=== PATIENT | male | born 1985 ===

== ENCOUNTER 2018-06-03 10:07 | Emergency (ER) | payer OTHER ==
[2018-06-03 10:18] VITALS: BMI 30.1
[2018-06-03 10:19] VITALS: BP 112/64; PULSE 63; RESP 17; TEMP 98.6; O2SAT 98
--- NOTE | 2018-06-03 12:07 | RAD ---
Date of service: 06/03/2018 HISTORY: chest pain COMPARISON: Chest radiograph dated 12/19/2014. TECHNIQUE: Chest PA and lateral views FINDINGS: LUNGS: No active pulmonary disease. PLEURA: No significant pleural effusion identified. No pneumothorax apparent. CARDIOVASCULAR: No aortic atherosclerotic calcification present. Normal cardiac size. No pulmonary vascular congestion. OSSEOUS STRUCTURES: No significant abnormalities. VISUALIZED UPPER ABDOMEN: Normal. OTHER FINDINGS: None. IMPRESSION: No active disease.
--- NOTE | 2018-06-03 12:28 | ED PDOC ---
HPI: Chest Pain Time Seen by Provider: 06/03/18 10:42 Chief Complaint (Nursing): Chest Pain Chief Complaint (Provider): Chest Pain History Per: Patient History/Exam Limitations: no limitations Onset/Duration Of Symptoms: Intermittent Episodes Current Symptoms Are (Timing): Better Additional Complaint(s): 33 year old male arrives to the emergency department for an evaluation of multiple complaints. Patient reports experiencing intermittent chest pain for 1 year, alternating right and left, and lasts a few minutes to hours then resolves spontaneously. Additionally, he reports some mild, intermittent, left testicular pain. At present, patient states he does not feel symptomatic. He denies penile discharge, pain, or swelling, however, expresses concern for STDs and would like to be tested. PCP: none provided Past Medical History Reviewed: Historical Data, Nursing Documentation, Vital Signs Vital Signs: Last Vital Signs Temp 98.6 F 06/03/18 10:18 Pulse 63 06/03/18 10:18 Resp 17 06/03/18 10:18 BP 112/64 06/03/18 10:18 Pulse Ox 98 06/03/18 10:18 - Medical History PMH: Asthma - Family History Family History: States: Unknown Family Hx - Home Medications Home Medications: Ambulatory Orders Medication Instructions Recorded Prednisone 50 mg PO DAILY #5 tab 12/19/14 - Allergies Allergies/Adverse Reactions: Allergies Allergy/AdvReac Type Severity Reaction Status Date / Time No Known Allergies Allergy Verified 06/03/18 10:24 Review of Systems ROS Statement: Except As Marked, All Systems Reviewed And Found Negative Cardiovascular: Positive for: Chest Pain (bilateral) Genitourinary Male: Positive for: Scrotal Pain (left teste). Negative for: Penile Discharge, Rash (or swelling), Penile Pain Physical Exam - Reviewed Nursing Documentation Reviewed: Yes Vital Signs Reviewed: Yes - Physical Exam Cardiovascular/Chest: Positive for: Regular Rate, Rhythm, Chest Non Tender. Negative for: Murmur Respiratory: Positive for: Normal Breath Sounds. Negative for: Wheezing, Respiratory Distress Male Genital Exam: Positive for: other (left, mobile, cystic-like structure on left aspect of testes). Negative for: erythema, scrotum tenderness (R), scrotum tenderness (L), testicular tenderness (R), testicular tenderness (L), urethral discharge Extremity: Positive for: Normal ROM (upper/lower). Negative for: Pedal Edema, Calf Tenderness Neurological/Psych: Positive for: Awake, Alert, Normal Tone. Negative for: Motor/Sensory Deficits - ECG O2 Sat by Pulse Oximetry: 98 (RA) Pulse Ox Interpretation: Normal Medical Decision Making Medical Decision Making: Time: 1140 Initial Plan: * CXR * Chlamydia/GC * UA * US testes duplex EKG: NSR at 64 bpm, no acute ischemic changes, QTc 398ms; as read by me CXR: napd; as read by me UA: wnl. US testes: small right hydrocele, otherwise normal (-) torsion Pt. well appearing, abd. soft/nt, no cp, lungs clear. Scribe Attestation: Documented by Brooklynn Albert, acting as a scribe for Cecilia Mccann PA-C. Provider Scribe Attestation: All medical record entries made by the Scribe were at my direction and personally dictated by me. I have reviewed the chart and agree that the record accurately reflects my personal performance of the history, physical exam, medical decision making, and the department course for this patient. I have also personally directed, reviewed, and agree with the discharge instructions and disposition. Disposition - Clinical Impression Clinical Impression: Chest pain, Testicular pain - Patient ED Disposition Is Patient to be Admitted: No Counseled Patient/Family Regarding: Studies Performed, Diagnosis, Need For Followup - Disposition Referrals: [facility] [Outside] Disposition: Routine/Home Disposition Time: 14:40 Condition: STABLE Instructions: Chest Pain (DC), How to Perform a Testicular Self-Exam Forms: [employer] (Hungarian)
[2018-06-03 12:49] LABS: URINE BILIRUBIN NEGATIVE (NEGATIVE); URINE BLOOD NEGATIVE (NEGATIVE); URINE CLARITY SLIGHTY-CLOUDY (Clear); URINE COLOR YELLOW (YELLOW); URINE GLUCOSE (UA) NEG (NEGATIVE); URINE LEUKOCYTE ESTERASE NEG Leu/uL (Negative); URINE PROTEIN NEGATIVE (NEGATIVE); URINE UROBILINOGEN 0.2-1.0 mg/dL (0.2-1.0)
--- NOTE | 2018-06-03 13:43 | US ---
Date of service: 06/03/2018 HISTORY: left testiscular pain TECHNIQUE: Realtime sonography through the scrotum with color and doppler flow. COMPARISON: None Available. FINDINGS: RIGHT TESTICLE: Measures 3.8 x 2.3 x 2.6 cm. Normal echotexture and flow. RIGHT EPIDIDYMIS: Epididymal head measures 0.8 x 0.7 x 1.0 cm. Grossly unremarkable appearance with normal flow. LEFT TESTICLE: Measures 4.4 x 2.0 x 2.9 cm. Normal echotexture and flow. LEFT EPIDIDYMIS: Epididymal head measures 1.0 x 0.6 x 1.0 cm. Grossly unremarkable appearance with normal flow. HYDROCELE: Small right hydrocele. VARICOCELE: None. OTHER FINDINGS: None. IMPRESSION: No evidence of testicular torsion. Small right hydrocele.
== END 2018-06-03 15:06 | disposition home or self-care (01) ==
LOC: H.ER 10:07
DX: R07.9 Chest pain, unspecified (principal); N50.812 Left testicular pain; J45.909 Unspecified asthma, uncomplicated

== ENCOUNTER 2018-07-03 20:40 | Emergency (ER) | payer SELFPAY ==
[2018-07-03 20:40] VITALS: BMI 30.1
[2018-07-03 21:52] LABS: BASO # 0.1 K/uL (0.0-0.2); BASO % 0.6 % (0.0-2.0); EOS # 0.1 K/uL (0.0-0.7); EOS % 0.7 % (0.0-4.0); HEMOGLOBIN 17.6 g/dL (12.0-18.0); LYMPH # 1.5 K/uL (1.0-4.3); LYMPH % 14.8 % (20.0-40.0); MEAN CELL VOLUME 87.8 fl (80.0-94.0); MEAN CORPUSCULAR HEMOGLOBIN 29.4 pg (27.0-31.0); MEAN CORPUSCULAR HGB CONC 33.5 g/dL (33.0-37.0); MEAN PLATELET VOLUME 8.7 fl (7.2-11.7); MONO # 0.7 K/uL (0.0-0.8); MONO % 7.5 % (0.0-10.0); NEUT # 7.5 K/uL (1.8-7.0); NEUT % 76.4 % (50.0-75.0); NRBC % 0.1 % (0.0-0.0); RBC 5.98 Mil/uL (4.40-5.90); RED CELL DISTRIBUTION WIDTH 13.3 % (11.5-14.5); WHITE BLOOD COUNT 9.8 K/uL (4.8-10.8)
[2018-07-03 22:05] LABS: ALB/GLOB RATIO 1.5 (1.0-2.1); ALBUMIN 4.9 g/dL (3.5-5.0); ALT/SGPT 28 U/L (21-72); AST/SGOT 30 U/L (17-59); BLOOD UREA NITROGEN 17 mg/dl (9-20); GFR NON-AFRICAN AMERICAN > 60
[2018-07-03] MEDS ORDERED: Potassium & Sodium Phosphate PO STA (22:13)
--- NOTE | 2018-07-03 22:17 | ED PDOC ---
HPI: SOB/CHF/COPD Time Seen by Provider: 07/03/18 20:59 Chief Complaint (Nursing): Shortness Of Breath Chief Complaint (Provider): chest pain and shortness of breath Onset/Duration Of Symptoms: Sudden Onset (7pm) Current Symptoms Are (Timing): Still Present Quality: Pressure, "Pain" Associated Symptoms: Chills, Chest Pain, Heart Racing, Leg/Calf Pain, Light- headedness, Anxiety. denies: Fever, Sweating, Bloody Cough, Productive Cough, Ankle/Leg Swelling Additional Complaint(s): Started while taking a shower Past Medical History Reviewed: Historical Data, Nursing Documentation, Vital Signs Vital Signs: Last Vital Signs Temp 97.5 F L 07/03/18 20:50 Pulse 108 H 07/03/18 20:50 Resp 17 07/03/18 21:34 BP 102/69 07/03/18 20:50 Pulse Ox 99 07/03/18 21:34 Primary Care Provider: FAMILY PROVIDER,NO - Medical History PMH: Asthma - Surgical History Surgical History: No Surg Hx - Family History Family History: States: No Known Family Hx - Social History Current smoker - smoking cessation education provided: Yes Alcohol: Social Drugs: Cannabis - Home Medications Home Medications: Ambulatory Orders Medication Instructions Recorded Prednisone 50 mg PO DAILY #5 tab 12/19/14 - Allergies Allergies/Adverse Reactions: Allergies Allergy/AdvReac Type Severity Reaction Status Date / Time No Known Allergies Allergy Verified 07/03/18 20:50 Review of Systems ROS Statement: Except As Marked, All Systems Reviewed And Found Negative (and as per HPI) Constitutional: Positive for: Chills Cardiovascular: Positive for: Chest Pain, Light Headedness Respiratory: Positive for: Cough, Shortness of Breath, Pleuritic Pain. Negative for: Hemoptysis, Wheezing Musculoskeletal: Positive for: Leg Pain Physical Exam - Reviewed Nursing Documentation Reviewed: Yes Vital Signs Reviewed: Yes - Physical Exam Appears: Positive for: No Acute Distress Head Exam: Positive for: ATRAUMATIC, NORMOCEPHALIC Skin: Positive for: Warm, Dry Eye Exam: Positive for: EOMI, PERRL ENT: Negative for: Pharyngeal Erythema, Tonsillar Exudate Neck: Positive for: Painless ROM, Supple Cardiovascular/Chest: Positive for: Regular Rate, Rhythm. Negative for: Murmur Respiratory: Positive for: Normal Breath Sounds. Negative for: Respiratory Distress Gastrointestinal/Abdominal: Positive for: Soft. Negative for: Tenderness Back: Positive for: Normal Inspection. Negative for: Decreased ROM Extremity: Positive for: Normal ROM. Negative for: Deformity Lymphatic: Negative for: Adenopathy Neurological/Psych: Positive for: Awake, Alert. Negative for: Motor/Sensory Deficits - Laboratory Results Result Diagrams: 07/03/18 21:29 07/03/18 21:29 Lab Results: D-Dimer, Quantitative 217 ng/mlDDU (0-230) 07/03/18 21:29 Total Bilirubin 0.8 mg/dl (0.2-1.3) 07/03/18 21:29 AST 30 U/L (17-59) 07/03/18 21:29 ALT 28 U/L (21-72) 07/03/18 21:29 Alkaline Phosphatase 51 U/L (38-126) 07/03/18 21:29 Total Protein 8.3 G/DL (6.3-8.2) H 07/03/18 21:29 Albumin 4.9 g/dL (3.5-5.0) 07/03/18 21:29 Globulin 3.4 gm/dL (2.2-3.9) 07/03/18 21: Albumin/Globulin Ratio 1.5 (1.0-2.1) 07/03/18 21:29 - ECG ECG: Positive for: Interpreted By Oh ECG Rhythm: Positive for: Normal QRS, Normal ST Segment, Sinus Rhythm O2 Sat by Pulse Oximetry: 99 - Radiology X-Ray: Interpreted by Oh X-Ray Interpretation: No Acute Disease Disposition - Clinical Impression Clinical Impression: Chest pain, Hypophosphatemia Counseled Patient/Family Regarding: Studies Performed, Diagnosis, Need For Followup - Disposition Referrals: [facility] [Outside] (FOLLOWUP AT YOUR DOCTOR OR CLINIC IN A WEEK FOR REEVALUATION ) Disposition: Routine/Home Disposition Time: 22:00 Condition: STABLE Additional Instructions: REST AND DRINK PLENTY OF HYDRATING FLUIDS EAT AT LEAST 3 WELL BALANCED MEALS A DAY AND START TAKING A MULTIVITAMIN DAILY Instructions: Chest Pain That Is Not Caused by the Heart (DC)
[2018-07-03 23:56] VITALS: BP 114/74; PULSE 90; RESP 18; TEMP 97.9; O2SAT 100
--- NOTE | 2018-07-04 08:26 | RAD ---
Date of service: 07/03/2018 HISTORY: chest pain COMPARISON: Chest radiographs 06/03/2018. TECHNIQUE: Chest PA and lateral views FINDINGS: LUNGS: No active pulmonary disease. PLEURA: No significant pleural effusion identified. No pneumothorax apparent. CARDIOVASCULAR: No aortic atherosclerotic calcification present. Normal cardiac size. No pulmonary vascular congestion. OSSEOUS STRUCTURES: No significant abnormalities. VISUALIZED UPPER ABDOMEN: Normal. OTHER FINDINGS: None. IMPRESSION: No interval acute cardiopulmonary disease appreciated.
--- NOTE | 2018-07-04 10:11 | CARD ---
APPROVED REPORT Date of service: 07/03/2018 EKG Measurement Heart [id number] <Conclusion> Sinus rhythm with marked sinus arrhythmia Otherwise normal ECG
== END 2018-07-03 23:42 | disposition home or self-care (01) ==
LOC: H.ER 20:40
DX: R07.89 Other chest pain (principal); E83.39 Other disorders of phosphorus metabolism